=== PATIENT | female | born 1980 ===

== ENCOUNTER 2016-09-10 08:00 | Inpatient (IN) | payer SELFPAY ==
[~2016-09-10] VITALS: Ht 149.9 cm; Wt 54.9 kg
[2016-09-10] MEDS ORDERED: BUPIVACAINE 0.5% PF 10ML EPIDURAL ONE (10:06)
[2016-09-13] VITALS (8 sets, daily range): BP systolic 99–116; RESP 18; TEMP 98.3–98.7; BMI 24.4
[2016-09-13] MEDS: LACT RINGERS 1,000 ML IV SCH ×4 (08:40→18:30)
[2016-09-13] MEDS ORDERED: LIDOCAINE 1% 30 ML PF ONE (09:07)
[2016-09-13] MEDS ORDERED: OXYTOCIN 15 UNITS/250 ML NS 500 ML IV ONE (09:07)
[2016-09-13] MEDS ORDERED: BUTORPHANOL 1 MG/ML VIAL IV PRN (09:10)
[2016-09-13] MEDS ORDERED: LIDOCAINE 1% BUFFERED 1 ML SYR INTRADERM PRN (09:10)
[2016-09-13] MEDS ORDERED: OXYTOCIN 15 UNITS/250 ML NS 250 ML IV SCH ×2 (09:10→20:30)
[2016-09-13] MEDS ORDERED: ALU/MAG/SIM 30 ML UDC PO PRN (09:10)
[2016-09-13] MEDS ORDERED: PROMETHAZINE 25 MG/ML VIAL IV PRN (09:10)
[2016-09-13] MEDS ORDERED: ONDANSETRON 4 MG VIAL IV PRN (09:10)
[2016-09-13] MEDS ORDERED: FAMOTIDINE 20 MG TAB PO PRN (09:10)
[2016-09-13] MEDS ORDERED: ACETAMINOPHEN 325 MG TAB PO PRN (09:10)
[2016-09-13] MEDS ORDERED: LIDOCAINE 1% 30 ML PF INFILTRATE ONE (09:10)
[2016-09-13] MEDS ORDERED: METOCLOPRAMIDE 10 MG/2 ML VIAL IV PUSH PRN (09:10)
[2016-09-13] MEDS ORDERED: TERBUTALINE 1 MG/ML VIAL SUBQ PRN (09:10)
[2016-09-13] MEDS ORDERED: FAMOTIDINE 20 MG INJ IV PRN (09:10)
[2016-09-13] MEDS ORDERED: Flu Vaccine Quadrivalent 60 MCG/0.5 ML IM.VACC ONE (09:45)
[2016-09-13] MEDS ORDERED: ROPIV/FENT 0.2%-2MCG/ML 100 ML EPIDURAL ONE (12:02)
[2016-09-13] MEDS ORDERED: FENTANYL 100 MCG/2 ML AMP ONE (12:09)
[2016-09-13] MEDS ORDERED: LACT RINGERS 500 ML IV PRN (13:30)
[2016-09-13] MEDS ORDERED: ROPIV/FENT 0.2%-2MCG/ML 100 ML EPIDURAL SCH (13:30)
[2016-09-13] MEDS ORDERED: LACT RINGERS 500 ML IV ONE (13:30)
[2016-09-13] MEDS ORDERED: SODIUM CHLORIDE 0.9% 500 ML IV PRN (13:30)
[2016-09-13] MEDS ORDERED: **ONLY ANESTEHSIA MAY ORDER OPIATES WHILE ON EPIDURAL XX SCH (20:00)
[2016-09-13] MEDS ORDERED: TDaP 0.5 ML VIAL IM.VACC ONE (20:30)
[2016-09-13] MEDS ORDERED: DERMOPLAST SPRAY TOPICAL PRN (20:30)
[2016-09-13] MEDS ORDERED: ASTRINGENT MED PADS 40'S TOPICAL PRN (20:30)
[2016-09-13] MEDS ORDERED: OXYCODONE/APAP 5/325 TAB PO PRN (20:30)
[2016-09-13] MEDS ORDERED: MAG HYDROX 30 ML UDC PO PRN (20:30)
[2016-09-13] MEDS ORDERED: MEASLES,MUMPS,RUBELLA VAC SUBQ.VACC ONE (20:30)
[2016-09-13] MEDS: OXYTOCIN 15 UNITS/250 ML NS 250 ML IV SCH ×2 (20:30→21:00)
[2016-09-13] MEDS ORDERED: ZOLPIDEM 5 MG TAB PO PRN (20:30)
[2016-09-14] VITALS (8 sets, daily range): BP systolic 85–113; RESP 14–20; TEMP 97.7–98.4
[2016-09-14] MEDS: Ibuprofen 600 MG TAB PO PRN ×5 (01:00→23:42)
[2016-09-14] MEDS: DOCUSATE SOD 100 MG CAP PO SCH (08:56)
[2016-09-14] MEDS ORDERED: TDaP 0.5 ML VIAL IM.VACC ONE (16:32)
[2016-09-15 05:18] VITALS: BP_SYST 96; RESP 16; TEMP 97.5
[2016-09-15 09:16] VITALS: BP_SYST 100
[2016-09-15 09:17] VITALS: RESP 18; TEMP 97.9
[2016-09-15] MEDS: DOCUSATE SOD 100 MG CAP PO SCH (09:25)
[2016-09-15] MEDS: Ibuprofen 600 MG TAB PO PRN (09:32)
[2016-09-15 10:27] VITALS: BP_SYST 100; RESP 18; TEMP 97.9
== END 2016-09-15 11:40 | disposition home or self-care (01) | DRG 775 ==
LOC: LD 09-13 07:36 → OB 09-13 23:50
PROVIDERS: ADMIT Obstetrics & Gynecology; ATTEND Obstetrics & Gynecology
PROC: 10E0XZZ Delivery of Products of Conception, External Approach (ICD-10-PCS; principal; 2016-09-13)
PROC: 0KQM0ZZ Repair Perineum Muscle, Open Approach (ICD-10-PCS; 2016-09-13)
CPT/HCPCS: 90471; 96372